=== PATIENT | female | born 1975 | race Hispanic/Latino ===

== ENCOUNTER 2016-11-02 10:11 | Observation (INO) | payer OTHER ==
[2016-11-02 10:20] VITALS: BMI 28.3
[2016-11-02] MEDS ORDERED: Liquid Adhesive TOP ONE (10:54)
[2016-11-02] MEDS ORDERED: TDAP Vaccine 0.5 mL Syr IM ONE (10:54)
--- NOTE | 2016-11-02 11:02 | ED PDOC ---
HPI: Psych/Substance Abuse Time Seen by Provider: 11/02/16 10:18 Chief Complaint (Nursing): Alcohol Ingestion Chief Complaint (Provider): Alcohol Ingestion History Per: Family () History/Exam Limitations: intoxication Onset/Duration Of Symptoms: Hrs (prior to arrival ) Current Symptoms Are (Timing): Still Present Modifying Factor(s): Alcohol Additional Complaint(s): 41 y/o female with a past medical history of alcoholism and severe anxiety presents to the emergency department via EMS for alcohol intoxication after called 911 prior to arrival. As per history from , patient was normal around 6:30 a.m. but around 10:30 a.m. patient was unresponsive to alarm clock and . States he is concerned she ingested pills after drinking although did not witness such behavior. Before EMS arrived, patient tried dressing herself and fell face first onto the floor and sustained a chin laceration. EMS found a finished liter of vokda behind her bed. Tetanus shot not up to date. Pt states she did not take any pills, only alcohol. Of note, patient was in rehab about 3 weeks ago. Past Medical History Reviewed: Historical Data, Nursing Documentation, Vital Signs Vital Signs: Last Vital Signs Temp 97 F L 11/02/16 10:15 Pulse 101 H 11/02/16 10:15 Resp BP 118/74 11/02/16 10:15 Pulse Ox 98 11/02/16 10:15 - Medical History PMH: Anxiety, Hypothyroidism - Surgical History Surgical History: No Surg Hx - Family History Family History: States: Unknown Family Hx - Social History Alcohol: > 2 Drinks/Day - Allergies Allergies/Adverse Reactions: Allergies Allergy/AdvReac Type Severity Reaction Status Date / Time Unobtainable Allergy Verified 11/02/16 10:34 Review of Systems ROS Statement: Except As Marked, All Systems Reviewed And Found Negative ( History obtained from ) Skin: Positive for: Other (Chin laceration) Physical Exam - Reviewed Nursing Documentation Reviewed: Yes Vital Signs Reviewed: Yes - Physical Exam Appears: Positive for: Non-toxic, No Acute Distress Head Exam: Positive for: ATRAUMATIC, NORMOCEPHALIC Skin: Positive for: Normal Color (1cm laceration on the chin), Warm, Dry Neurologic/Psych: Positive for: Alert, Oriented - Laboratory Results Result Diagrams: 11/02/16 11:10 11/02/16 11:10 - ECG O2 Sat by Pulse Oximetry: 98 (RA) Pulse Ox Interpretation: Normal - Progress ED Course And Treament: states he is willing to take responsibility of patient. Re-evaluation Time: 15:40 Condition: Improved Medical Decision Making Medical Decision Making: Time: 10:18 Initial impression: Alcohol Intoxication Initial plan: --Cervical Spine w/o contrast CT --Head w/o constrast CT --Acetaminophen Stat --Alcohol Serum Stat --COMP Metabolic Panel --Drug Screen, Urine Stat --HCG, Qualitative Serum --Salicylate Stat --ED Urine Dipstick (POC) Stat --ED Urine (POC) Stat --CBC w/ differential --Adhesive 0.66 mL --TDAP Vaccine 0.5 mL IM --Accucheck --Urinalysis Stat --Admit to hospital routine --Revaluation Time: 11:38 --Head CT FINDINGS: HEMORRHAGE: No intracranial hemorrhage. BRAIN: No mass effect or edema. No atrophy or chronic microvascular ischemic changes. VENTRICLES: Unremarkable. No hydrocephalus. CALVARIUM: Unremarkable. PARANASAL SINUSES: Unremarkable as visualized. No significant inflammatory changes. MASTOID AIR CELLS: Unremarkable as visualized. No inflammatory changes. OTHER FINDINGS: None. IMPRESSION: Normal CT of the Head. Time: 11:44 --Cervical Spine CT FINDINGS: VERTEBRAE: No fracture. Normal alignment. No destructive bony lesion. DISCS/SPINAL CANAL/NEURAL FORAMINA: No significant central canal or neural foraminal stenosis. Discs heights are grossly preserved. PARASPINAL SOFT TISSUES: Unremarkable. OTHER FINDINGS: None. IMPRESSION: Unremarkable CT of the cervical spine. Scribe Attestation: Documented by Marly De La Vega, acting as a scribe for Mami Perez MD. Provider Scribe Attestation: All medical record entries made by the Scribe were at my direction and personally dictated by me. I have reviewed the chart and agree that the record accurately reflects my personal performance of the history, physical exam, medical decision making, and the department course for this patient. I have also personally directed, reviewed, and agree with the discharge instructions and disposition. ED OBSERVATION Date of observation admission: 11/02/16 Time of observation admission: 11:00 - Observation admission statement Patient is being placed in observation because:: of alcohol intoxication prior to arrival. - Goals of Observation Goals of observation are:: clinical sobriety Disposition - Clinical Impression Clinical Impression: Alcohol intoxication, Chin laceration - Disposition Disposition: Routine/Home Disposition Time: 15:41 Condition: IMPROVED
[2016-11-02 11:24] LABS: BASO % 0.3 % (0.0-2.0); EOS % 0.3 % (0.0-4.0); LYMPH # 1.9 K/uL (1.0-4.3); LYMPH % 35.7 % (20.0-40.0); MEAN CELL VOLUME 91.3 fl (81.0-99.0); MEAN CORPUSCULAR HEMOGLOBIN 30.7 pg (27.0-31.0); MEAN CORPUSCULAR HGB CONC 33.6 g/dL (33.0-37.0); MEAN PLATELET VOLUME 7.9 fl (7.2-11.7); MONO # 0.2 K/uL (0.0-0.8); MONO % 4.6 % (0.0-10.0); NEUT # 3.1 K/uL (1.8-7.0); NEUT % 59.1 % (50.0-75.0); NRBC % 0.2 % (0.0-0.0); RED CELL DISTRIBUTION WIDTH 13.8 % (11.5-14.5); WHITE BLOOD COUNT 5.3 K/uL (4.8-10.8)
[2016-11-02 11:37] LABS: CHLORIDE 106 mmol/L (98-107); POTASSIUM 3.8 MMOL/L (3.6-5.0); SODIUM 146 mmol/l (132-148)
--- NOTE | 2016-11-02 11:40 | CT ---
PROCEDURE: CT HEAD WITHOUT CONTRAST. HISTORY: Fall COMPARISON: None available. TECHNIQUE: Axial computed tomography images were obtained through the head/brain without intravenous contrast. Radiation dose: Total exam DLP = 1155 mGy-cm. This CT exam was performed using one or more of the following dose reduction techniques: Automated exposure control, adjustment of the mA and/or kV according to patient size, and/or use of iterative reconstruction technique. FINDINGS: HEMORRHAGE: No intracranial hemorrhage. BRAIN: No mass effect or edema. No atrophy or chronic microvascular ischemic changes. VENTRICLES: Unremarkable. No hydrocephalus. CALVARIUM: Unremarkable. PARANASAL SINUSES: Unremarkable as visualized. No significant inflammatory changes. MASTOID AIR CELLS: Unremarkable as visualized. No inflammatory changes. OTHER FINDINGS: None. IMPRESSION: Normal CT of the Head.
--- NOTE | 2016-11-02 11:45 | CT ---
PROCEDURE: CT Cervical Spine without contrast HISTORY: <Fall> COMPARISON: None available. TECHNIQUE: Axial computed tomography images were obtained of the cervical spine without the use of intravenous contrast. Coronal and sagittal reformatted images were created and reviewed. Radiation dose: Total exam DLP = 548 mGy-cm. This CT exam was performed using one or more of the following dose reduction techniques: Automated exposure control, adjustment of the mA and/or kV according to patient size, and/or use of iterative reconstruction technique. FINDINGS: VERTEBRAE: No fracture. Normal alignment. No destructive bony lesion. DISCS/SPINAL CANAL/NEURAL FORAMINA: No significant central canal or neural foraminal stenosis. Discs heights are grossly preserved. PARASPINAL SOFT TISSUES: Unremarkable. OTHER FINDINGS: None. IMPRESSION: Unremarkable CT of the cervical spine.
[2016-11-02 12:05] LABS: ALKALINE PHOSPHATASE 54 U/L (38-126); AST/SGOT 42 U/L (14-36); BILIRUBIN,TOTAL 0.5 mg/dl (0.2-1.3); CARBON DIOXIDE 21 mmol/L (22-30)
[2016-11-02 12:06] LABS: ALB/GLOB RATIO 1.4 (1.0-2.1); ALT/SGPT 33 U/L (9-52); BLOOD UREA NITROGEN 12 mg/dl (7-17); GLUCOSE,RANDOM 76 mg/dL (65-105); TOTAL PROTEIN 6.7 G/DL (6.3-8.2)
[2016-11-02 12:07] LABS: CALCIUM 8.3 mg/dL (8.4-10.2)
[2016-11-02] MEDS ORDERED: Sodium Chloride 0.9% 1,000 ML IV STA (12:13)
[2016-11-02 12:14] LABS: GFR AFRICAN-AMERICAN > 60
[2016-11-02 12:42] LABS: ALCOHOL SERUM 391 mg/dl (0-10)
[2016-11-02 16:09] VITALS: BP 123/67; PULSE 78; RESP 19; TEMP 98.2
[2016-11-02 16:23] VITALS: O2SAT 98
== END 2016-11-02 15:41 | disposition home or self-care (01) ==
LOC: H.ER 10:11 → H.EROBSV 11:00
PROVIDERS: ADMIT Emergency Medicine; ATTEND Emergency Medicine
DX: F10.229 Alcohol dependence with intoxication, unspecified (principal); Y90.8 Blood alcohol level of 240 mg/100 ml or more; S01.81XA Laceration without foreign body of other part of head, initial encounter; W18.30XA Fall on same level, unspecified, initial encounter; Y92.009 Unspecified place in unspecified non-institutional (private) residence as the place of occurrence of the external cause; Z23 Encounter for immunization; E03.9 Hypothyroidism, unspecified; F41.9 Anxiety disorder, unspecified

== ENCOUNTER 2017-11-28 00:02 | Emergency (ER) | payer BC, OTHER ==
[2017-11-28 00:02] VITALS: BMI 28.3
[2017-11-28 00:06] VITALS: O2SAT 100
[2017-11-28 00:10] VITALS: RESP 20
[2017-11-28] MEDS ORDERED: Sodium Chloride 0.9% 1,000 ML IV STA (00:14)
--- NOTE | 2017-11-28 00:54 | ED PDOC ---
Syncope/Near Syncope/Dizziness Time Seen by Provider: 11/28/17 00:08 Chief Complaint (Nursing): Syncope Chief Complaint (Provider): Syncope History Per: Patient, Family () History/Exam Limitations: no limitations Onset/Duration Of Symptoms: Other ([employer]) Additional Complaint(s): 42 years old female with history of anxiety, depression, insomnia, diabetes and alcoholism brought to the ED by EMS for evaluation of syncopal event prior to arrival that was witnessed by the husbands. Patient reports the event happened subsequent to when she went to the kitchen to prepare food and felt lightheaded. According to , patient experienced 3 syncopal events in which each lasted 1-2 seconds. He reports he lifted her therefore she did not hit the floor. She states she took her normal sleep agent dosages of Trazodone (150mg) and Baclofen (40mg) prior to the event. Patient reports she has not been drinking adequate fluids because of a stomach virus she had before. Patient denies any head injury, abdominal pain, fever, cough, chest pain or shortness of breath, suicidal ideation or illicit alcohol. She denies drinking alcohol in the past 24 hours. PMD: non provided Past Medical History Vital Signs: Last Vital Signs Temp 98.2 F 11/28/17 00:05 Pulse 119 H 11/28/17 00:05 Resp 20 11/28/17 00:05 BP 143/83 11/28/17 00:05 Pulse Ox 100 11/28/17 00:05 - Medical History PMH: Anxiety, Diabetes, Hypothyroidism - Surgical History Surgical History: No Surg Hx - Family History Family History: States: Unknown Family Hx - Social History Current smoker - smoking cessation education provided: No Alcohol: Social Drugs: Denies - Allergies Allergies/Adverse Reactions: Allergies Allergy/AdvReac Type Severity Reaction Status Date / Time No Known Allergies Allergy Verified 11/28/17 00:05 Review of Systems ROS Statement: Except As Marked, All Systems Reviewed And Found Negative Constitutional: Negative for: Fever Cardiovascular: Negative for: Chest Pain Respiratory: Negative for: Cough, Shortness of Breath Gastrointestinal: Negative for: Abdominal Pain Psych: Negative for: Suicidal ideation Physical Exam - Reviewed Nursing Documentation Reviewed: Yes Vital Signs Reviewed: Yes - Physical Exam Appears: Positive for: Non-toxic, No Acute Distress Head Exam: Positive for: ATRAUMATIC, NORMOCEPHALIC ENT: Positive for: Other (Tacky mucous memebrane) Cardiovascular/Chest: Positive for: Tachycardia Neurologic/Psych: Positive for: Alert, Oriented, Other (Slurred speech) - Laboratory Results Result Diagrams: 11/28/17 01:49 11/28/17 01:49 - ECG O2 Sat by Pulse Oximetry: 100 (RA) Pulse Ox Interpretation: Normal Medical Decision Making Medical Decision Making: Time: 13 Initial Impression: 42 years old female with dehydration and usage of sleep agent. Initial Plan: --EKG --Acetaminophen --Alcohol Serum --CMP --Urine drug screen --Magnesium --Salicylate --Crisis evaluation --Urine --Urine dipstick --CBC --NaCl 1,000 mls/hr Time: 0447 Labs reviewed and found significant for depressed CO2 level and elevated glucose. Patient reports she is noncompliant with Metformin. Provider reinforced need for patient to take her oral hypoglycemics as prescribed. Patient verbalized understanding. After 2 L of IV fluid patient reports improvement of symptoms. Patient has been cleared by crisis and is stable for discharge in the company of her . Return precautions provided. DX Dehydration, Syncope, Hyperglycemia Scribe Attestation: Documented by Maggie Rodriguez, acting as a scribe for Bryan Rivas MD. Provider Scribe Attestation: All medical record entries made by the Scribe were at my direction and personally dictated by me. I have reviewed the chart and agree that the record accurately reflects my personal performance of the history, physical exam, medical decision making, and the department course for this patient. I have also personally directed, reviewed, and agree with the discharge instructions and disposition. Disposition - Clinical Impression Clinical Impression: Syncope, Dehydration, Hyperglycemia - Disposition Disposition: Routine/Home Disposition Time: 04:47 Condition: IMPROVED Instructions: Syncope (Fainting), Dehydration, Adult (DC) Forms: [employer] (Armenian)
[2017-11-28 02:00] LABS: BASO % 0.3 % (0.0-2.0); EOS % 0.2 % (0.0-4.0); HEMOGLOBIN 14.5 g/dL (12.0-16.0); LYMPH # 0.8 K/uL (1.0-4.3); LYMPH % 20.3 % (20.0-40.0); MEAN CELL VOLUME 90.3 fl (81.0-99.0); MEAN CORPUSCULAR HEMOGLOBIN 30.5 pg (27.0-31.0); MEAN CORPUSCULAR HGB CONC 33.8 g/dL (33.0-37.0); MEAN PLATELET VOLUME 8.4 fl (7.2-11.7); MONO # 0.5 K/uL (0.0-0.8); NEUT # 2.7 K/uL (1.8-7.0); NEUT % 66.2 % (50.0-75.0); RBC 4.74 Mil/uL (3.80-5.20); RED CELL DISTRIBUTION WIDTH 13.3 % (11.5-14.5)
[2017-11-28 02:08] LABS: ACETAMINOPHEN < 10.0 ug/ml (10.0-30.0); ALB/GLOB RATIO 1.2 (1.0-2.1); ALBUMIN 4.2 g/dL (3.5-5.0); ALT/SGPT 40 U/L (9-52); AST/SGOT 39 U/L (14-36); BLOOD UREA NITROGEN 22 mg/dl (7-17); CALCIUM 9.6 mg/dL (8.4-10.2); GFR AFRICAN-AMERICAN > 60; GFR NON-AFRICAN AMERICAN > 60; SALICYLATE < 1.0 mg/dl
[2017-11-28] MEDS ORDERED: Lactated Ringer's 1,000 ML IV STA (03:01)
[2017-11-28 03:55] VITALS: BP 106/68; PULSE 73; TEMP 97.7
--- NOTE | 2017-11-28 14:51 | CARD ---
APPROVED REPORT EKG Measurement Heart [id number] <Conclusion> Sinus rhythm with short VT Prolonged QT Abnormal ECG
== END 2017-11-28 04:35 | disposition home or self-care (01) ==
LOC: H.ER 00:02
DX: R55 Syncope and collapse (principal); E11.65 Type 2 diabetes mellitus with hyperglycemia; E86.0 Dehydration; E03.9 Hypothyroidism, unspecified; F41.9 Anxiety disorder, unspecified; Z91.19 Patient's noncompliance with other medical treatment and regimen
CPT/HCPCS: 80053; 82948; 83735; 85025; 93005; 99285; G0480; J7040; J7120